=== PATIENT | female | born 1935 | race Caucasian/White ===

== ENCOUNTER 2019-12-16 12:07 | Outpatient (CLI) | payer MEDICARE, MEDICAID ==
--- NOTE | 2019-12-16 12:45 | RAD ---
EXAM: Chest 2 views: HISTORY: Dyspnea COMPARISON: 12/15/2019 FINDINGS: Fairly marked right hemidiaphragm elevation. Minimal blunting left costophrenic angle. Heart size:Minimal cardiomegaly Lungs:Stable infrahilar linear parenchymal changes bilaterally. Atherosclerotic changes of the aorta. No confluent pneumonia, overt edema, pleural effusion, pneumothorax, or other significant acute proce ss. IMPRESSION: Stable appearance of the chest. Atherosclerosis of the aorta. No acute intrathoracic disease.
== END 2019-12-16 12:08 | disposition home or self-care (01) ==
LOC: RAD 12:07
PROVIDERS: ATTEND Internal Medicine
DX: R06.00 Dyspnea, unspecified (principal); I70.0 Atherosclerosis of aorta
CPT/HCPCS: 71046